=== PATIENT | male | born 1960 | race Caucasian/White ===

== ENCOUNTER 2016-09-01 17:32 | Emergency (ER) | payer OTHER ==
[~2016-09-01] VITALS: Ht 157.5 cm; Wt 70.0 kg
[2016-09-01 17:34] VITALS: Ht 157.5 cm; Wt 70.0 kg
[2016-09-01] MEDS ORDERED: IBUPROFEN 600 MG TAB PO ONE (19:00)
[2016-09-01 19:21] LABS: URINE BLOOD (Dip) POC 3+ (NEGATIVE)
--- NOTE | 2016-09-01 20:30 | RADRPT ---
PROCEDURE: US Scrotum. CLINICAL INDICATION: Right inguinal pain. TECHNIQUE: Multiple sonographic images of the scrotal region were obtained utilizing a linear arra y transducer with grayscale and color-flow and pulsed Doppler imaging. The images were reviewed on a high-resolution PACS workstation. COMPARISON: No prior studies are available for comparison. FINDINGS: The right testis measures 3.8 x 1.9 x 2.9 cm. The left testis measures 4.0 x 2.1 x 3.2 cm. There is no intratesticular mass. There is a benign right epididymal cyst measuring 0.8 cm and a benign left epididymal cyst measuring 0.8 cm. There is normal flow to both testes demonstrated with color Doppler and pulsed Doppler sonography. There is no hydrocele. There is no varicocele. The scrotal wall is unremarkable. IMPRESSION: 1. Benign bilateral epididymal cysts. 2. Otherwise normal scrotal ultrasound. RPTAT: QQ .Kyler Zee MD, MD Date Time Electronically viewed and signed by .Kyler Zee MD, on 09/01/2016 20:29 .R/
--- NOTE | 2016-09-01 21:44 | RADRPT ---
PROCEDURE: CT abdomen and pelvis without intravenous contrast. CLINICAL INDICATION: Pain. TECHNIQUE: CT of the abdomen/pelvis was performed utilizing axial images with reconstructions in s agittal and coronal planes. The administered radiation dose is CTDI 7.4 mGy, DLP 428 mGy-cm. COMPARISON: No pertinent prior examinations were submitted for comparison. FINDINGS: Visualized Chest: There is mild cardiomegaly. Some coronary artery calcifications are noted. Abdomen: The liver, spleen, pancreas, gallbladder,and adrenal glands are unremarkable. The kidneys are without hydronephrosis. No definite urinary calculi are seen. There is no evidence of bowel obstruction. The appendix is normal. No intra-abdominal free air is seen. There is no evidence of intra-abdominal adenopathy or free fluid. A few scattered atherosclerotic c alcifications are noted within the aorta. Pelvis: There is no evidence of pelvic adenopathy or free fluid. The prostate and bladder are unremarkable. Osseous structures: Unremarkable. IMPRESSION: No acute findings. RPTAT: HIKT .Ez Henning MD, MD Date Time Electronically viewed and signed by .Ez Henning MD, MD on 09/01/2016 21:43 .T/
[2016-09-01 21:49] VITALS: BP 173/93; PULSE 63; RESP 16
[2016-09-01] MEDS ORDERED: CYCL-319 PO (22:03)
[2016-09-01] MEDS ORDERED: IBUP-1542 PO (22:03)
--- NOTE | 2016-09-05 16:15 | ERD ---
ER Documentation Chief Complaint Date/Time DATE: 09/05/16 TIME: 16:11 Chief Complaint RIGHT GROIN PAIN HPI This patient is 56-year-old male presenting to the emergency department for pain in his right groin area which radiates down his right leg which is been ongoing intermittently for the past 2 weeks. He states the pains started as scrotal pain but then worsened to the inguinal area. Symptoms are aggravated by movement of his right leg. Alleviated with Tylenol. Symptoms are intermittent but worsening. He has no pain on urination. The patient has had no loss of bowel or bladder function the patient does have a history of inguinal hernia on the right side in approximately 1977 which resolved on its own. He has had no trauma to the testicles. The patient denies hematuria, history of kidney stones, flank pain, nausea, vomiting, diarrhea, fevers, chills , or other symptoms at this time. ROS All systems reviewed and are negative except as per history of present illness. Medications Home Meds Active Scripts Ibuprofen* (Motrin*) 600 Mg Tab, 600 MG PO Q6, #30 TAB Prov:ROOPA ZULUAGA PA-C 09/01/16 Cyclobenzaprine Hcl* (Cyclobenzaprine Hcl*) 10 Mg Tablet, 10 MG PO TID, #15 TAB Prov:ROOPA ZULUAGA PA-C 09/01/16 PMhx/Soc History of Surgery: No Anesthesia Reaction: No Hx Neurological Disorder: No Hx Respiratory Disorders: No Hx Cardiac Disorders: No Hx Psychiatric Problems: No Hx Miscellaneous Medical Probl: Yes (INGUINAL HERNIA A CHILD.) Hx Alcohol Use: No Hx Substance Use: No Hx Tobacco Use: No Smoking Status: Never smoker Physical Exam Vitals Vital Signs Date Time Temp Pulse Resp B/P Pulse Ox O2 Delivery O2 Flow Rate FiO2 09/01/16 21:49 63 16 173/93 98 09/01/16 17:34 98.0 91 19 170/106 96 Physical Exam Const: The patient is resting comfortably in no acute distress. Head: Atraumatic Eyes: Normal Conjunctiva ENT: Normal External Ears, Nose and Mouth. Neck: Full range of motion..~ No meningismus. Resp: Clear to auscultation bilaterally Cardio: Regular rate and rhythm, no murmurs Abd: Soft, non tender, non distended. Normal bowel sounds Exam: Scrotum: Normal Hernia: None Testes/Epid: Non-tender w/ normal lie Cremaster: Reflex intact Lymph: No inguinal lymphadenopathy Discharge: None Skin: No petechiae or rashes Back: No midline or flank tenderness Ext: No cyanosis, or edema Neur: Awake and alert Psych: Normal Mood and Affect Results 24 hrs Laboratory Tests Test 09/01/16 19:24 Bedside Urine pH (LAB) 5.0 Bedside Urine Protein (LAB) Negative Bedside Urine Glucose (UA) Negative Bedside Urine Ketones (LAB) Negative Bedside Urine Blood 3+ Bedside Urine Nitrite (LAB) Negative Bedside Urine Leukocyte Esterase (L Negative Current Medications Medications (Trade) Dose Ordered Sig/Salomon Route PRN Reason Start Time Stop Time Status Last Admin Dose Admin Ibuprofen (Motrin) 600 mg ONCE ONCE PO 09/01/16 19:00 09/01/16 19:01 DC 09/01/16 18:59 Patient: BRAXTON JAMESON : 1960 Age: 56 Sex: M MR #: [id number] DOS: 09/01/16 0000 Ordering MD: ROOPA ZULUAGA PA-C Location: [facility] Room/Bed: PROCEDURE: CT abdomen and pelvis without intravenous contrast. CLINICAL INDICATION: Pain. TECHNIQUE: CT of the abdomen/pelvis was performed utilizing axial images with reconstructions in sagittal and coronal planes. The administered radiation dose is CTDI 7.4 mGy, DLP 428 mGy-cm. COMPARISON: No pertinent prior examinations were submitted for comparison. FINDINGS: Visualized Chest: There is mild cardiomegaly. Some coronary artery calcifications are noted. Abdomen: The liver, spleen, pancreas, gallbladder,and adrenal glands are unremarkable. The kidneys are without hydronephrosis. No definite urinary calculi are seen. There is no evidence of bowel obstruction. The appendix is normal. No intra- abdominal free air is seen. There is no evidence of intra-abdominal adenopathy or free fluid. A few scattered atherosclerotic calcifications are noted within the aorta. Pelvis: There is no evidence of pelvic adenopathy or free fluid. The prostate and bladder are unremarkable. Osseous structures: Unremarkable. IMPRESSION: No acute findings. RPTAT: HIKT .Ez Henning MD, MD Date Time Electronically viewed and signed by .Ez Henning MD, MD on 09/01/2016 21:43 .T/ CC: ROOPA ZULUAGA PA-C [place] [id number] Radiology Main Line: [phone] DIAGNOSTIC IMAGING REPORT Patient: BRAXTON JAMESON : 1960 Age: 56 Sex: M MR #: [id number] DOS: 09/01/16 0000 Ordering MD: ROOPA ZULUAGA PA-C Location: [facility] Room/Bed: PROCEDURE: US Scrotum. CLINICAL INDICATION: Right inguinal pain. TECHNIQUE: Multiple sonographic images of the scrotal region were obtained utilizing a linear array transducer with grayscale and color-flow and pulsed Doppler imaging. The images were reviewed on a high-resolution PACS workstation. COMPARISON: No prior studies are available for comparison. FINDINGS: The right testis measures 3.8 x 1.9 x 2.9 cm. The left testis measures 4.0 x 2.1 x 3.2 cm. There is no intratesticular mass. There is a benign right epididymal cyst measuring 0.8 cm and a benign left epididymal cyst measuring 0.8 cm. There is normal flow to both testes demonstrated with color Doppler and pulsed Doppler sonography. There is no hydrocele. There is no varicocele. The scrotal wall is unremarkable. IMPRESSION: 1. Benign bilateral epididymal cysts. 2. Otherwise normal scrotal ultrasound. RPTAT: QQ .Kyler Zee MD, MD Date Time Electronically viewed and signed by .Kyler Zee MD, MD on 09/01/2016 20:29 .R/ CC: ROOPA ZULUAGA PA-C Procedures/MDM 48-year-old male presents to the emergency department for right groin pain. On physical examination the patient's blood pressure was elevated at 170/106. Patient's blood pressure was elevated (>120/80) but appears stable without evidence of hypertension emergency or urgency. The patient was counseled about the risks of hypertension and urged to pursue outpatient monitoring and therapy within a week with their primary care physician. The patient's elevated blood pressure may be secondary to pain. The patient was given ibuprofen in the department and he was feeling improved on reevaluation. Radiology results were shared with the patient. There were no signs of nephrolithiasis or obstructive uropathy, testicular torsion, testicular masses, acute abdominal findings, or other abnormalities. Radiology was interpreted by the radiologist. The patient's symptoms are most likely secondary to a strained groin muscle. The patient is stable for outpatient management with a prescription for Flexeril and ibuprofen. All questions and concerns were addressed. Strict ER return precautions were discussed and the patient admits rates good understanding. The patient is to have close follow- up with primary care physician in the next 1-2 days. Departure Diagnosis: Primary Impression: Injury of groin Condition: Fair Patient Instructions: Groin Strain Referrals: [facility] YOU HAVE RECEIVED A MEDICAL SCREENING EXAM AND THE RESULTS INDICATE THAT YOU DO NOT HAVE A CONDITION THAT REQUIRES URGENT TREATMENT IN THE EMERGENCY DEPARTMENT. FURTHER EVALUATION AND TREATMENT OF YOUR CONDITION CAN WAIT UNTIL YOU ARE SEEN IN YOUR DOCTORS OFFICE WITHIN THE NEXT 1-2 DAYS. IT IS YOUR RESPONSIBILITY TO MAKE AN APPOINTMENT FOR FOLOW-UP CARE. IF YOU HAVE A PRIMARY DOCTOR --you should call your primary doctor and schedule an appointment IF YOU DO NOT HAVE A PRIMARY DOCTOR YOU CAN CALL OUR PHYSICIAN REFERRAL HOTLINE AT IF YOU CAN NOT AFFORD TO SEE A PHYSICIAN YOU CAN CHOSE FROM THE FOLLOWING [facility] [address] [facility] [address] [facility] [address] [facility] [address] [facility]. [facility] [address] [facility]. [facility] [address] Additional Instructions: Follow up with your PCP within the next 1-3 days for a repeat evaluation and a possible referral to a specialist, if required. Return the the emergency department immediately if symptoms worsen or change. If you have any questions regarding medications, ask your pharmacist or us before you leave. If any adverse reactions, occur while taking your medications, discontinue the treatment and return to the emergency department immediately. If any new or worsening symptoms, uncontrolled fevers, or other unexplained symptoms occur, return to the emergency department immediately. Take your medications as directed, and complete the entire course of treatment. ROOPA ZULUAGA PA-C September 05, 2016 16:15
== END 2016-09-01 22:09 | disposition home or self-care (01) ==
LOC: FTE 17:32
DX: S39.91XA Unspecified injury of abdomen, initial encounter (principal); X58.XXXA Exposure to other specified factors, initial encounter; Y92.9 Unspecified place or not applicable
CPT/HCPCS: 74176; 76870; 81003

== ENCOUNTER 2017-01-19 10:40 | Emergency (ER) | END 2017-01-19 13:00 | disposition home or self-care (01) | DX: I88.9 Nonspecific lymphadenitis, unspecified (principal) ==